=== PATIENT | female | born 1985 | race African-American/Black ===

== ENCOUNTER 2023-01-01 07:51 | Outpatient (CLI) | payer BC | END 2023-01-01 07:52 | disposition home or self-care (01) | LOC: MADULT 07:51 | PROVIDERS: ATTEND Internal Medicine Gastroenterology | DX: R10.9 Unspecified abdominal pain (principal); R11.2 Nausea with vomiting, unspecified | CPT/HCPCS: 76700 ==

== ENCOUNTER 2024-01-23 19:19 | Emergency (ER) | payer BC ==
[~2024-01-23 19:19] MED LIST: Iopamidol 370 76% 100 ML VIAL ONE; Sodium Chloride 0.9% 100 ML BAG ONE
[2024-01-23] MEDS ORDERED: Ipratropium/Albuterol 3 ML NEB ONE (19:52)
[2024-01-23] MEDS ORDERED: Morphine 4 MG/ML VIAL ONE (20:10)
[2024-01-23 20:21] LABS: ALT (SGPT) 14 U/L (8-55); AST (SGOT) 17 U/L (5-34); Albumin 3.5 g/dL (3.5-5.0); Alkaline Phosphatase 52 U/L (40-110); Anion Gap 16 mmol/L (10-20); BUN (Urea Nitrogen) 9 mg/dL (7.0-18.7); Bilirubin, Total 0.4 mg/dL (0.2-1.2); Calc. Creatinine Clearance 0 mL/min (70-130); Calcium 8.6 mg/dL (7.8-10.44); Carbon Dioxide 20 mmol/L (22-29); Chloride 109 mmol/L (98-107); Estimated GFR 101; Globulin 3.6 g/dL (2.4-3.5); Glucose 103 mg/dL (70-105); Magnesium 1.6 mg/dL (1.6-2.6); Potassium 3.7 mmol/L (3.5-5.1); Protein, Total 7.1 g/dL (6.0-8.3); Sodium 141 mmol/L (136-145)
[2024-01-23 20:22] LABS: Troponin I Less than 0.010 ng/mL (< 0.028)
[2024-01-23 20:37] LABS: Hematocrit 39.7 % (36.0-47.0); Lymphocytes 19 % (21-51); MDiff Complete? YES; Mean Corpuscular HGB CONC 30.3 g/dL (32.0-36.0); Mean Corpuscular Volume 82.4 fl (78.0-98.0); Mean Platelet Volume 7.3 fL (7.4-10.4); Monocytes 7 % (0-10); Neutrophil 74 % (42-75); Platelet Adequacy Comment Appears Adequate; Platelet Count 294 10x3/uL (130-400); RBC Distribution Width 13.2 % (11.5-14.5); Red Blood Cell (RBC) Count 4.82 mill/uL (4.20-5.40); White Blood Cell (WBC) Count 10.2 10x3/uL (4.8-10.8)
[2024-01-23 21:24] LABS: Bilirubin Negative (Negative); Blood, Urine Moderate (Negative); CAUTI Indications for Culture Pelvic or flank pain; Clarity Hazy (Clear); Glucose, Urine (Dipstick) Negative (Negative); Ketone, Urine Negative (Negative); Leukocyte Small (Negative); Nitrite Negative (Negative); Protein, Urine (Dipstick) Negative (Neg-Trace); RBC/HPF Greater than 50 HPF (0-3); Specific Gravity, Urine 1.015 (1.005-1.030); Urobilinogen 0.2 mg/dL (Less than 2); WBC/HPF 0-3 HPF (0-3)
[2024-01-23 21:25] LABS: Urine Culture Reflex No No
[2024-01-23] MEDS ORDERED: Ketorolac Tromethamine 30 MG (1 mL) VIAL ONE (22:01)
== END 2024-01-23 22:15 | disposition home or self-care (01) ==
LOC: MADERS 19:19
DX: S29.011A Strain of muscle and tendon of front wall of thorax, initial encounter (principal); X50.0XXA Overexertion from strenuous movement or load, initial encounter
CPT/HCPCS: 71045; 71275; 80053; 81001; 83735; 83880; 84484; 85025; 93005; J1885; J2270; J3490; J7620; Q9967